=== PATIENT | male | born 1990 | race Caucasian/White ===

== ENCOUNTER 2021-09-15 11:31 | Emergency (ER) | payer SELFPAY ==
[~2021-09-15] VITALS: Ht 167.6 cm; Wt 77.1 kg
--- NOTE | 2021-09-15 11:45 | NUR ---
[id number], from home, diaphoretic, and pale per GF, 1mg narcan given, BS 206. Admits smoking marijuana. Placed comfortably in bed. Vitals checked.
[2021-09-15] MEDS ORDERED: NALO4SPR BNOSTRILS (12:52)
[2021-09-15 12:58] VITALS: BP 140/77
--- NOTE | 2021-09-15 12:58 | NUR ---
Patient discharged to home in stable condition. Written and verbal after care instructions given. Patient verbalizes understanding of instruction.IV removed. Catheter intact and site benign. Pressure and 4x4 applied to site. No bleeding noted.
== END 2021-09-15 12:58 | disposition home or self-care (01) ==
LOC: ER 11:33
DX: T40.711A Poisoning by cannabis, accidental (unintentional), initial encounter (principal); Y92.89 Other specified places as the place of occurrence of the external cause